=== PATIENT | female | born 1960 ===

== ENCOUNTER 2020-06-02 09:30 | Outpatient (CLI) | payer BC ==
--- NOTE | 2020-06-02 14:24 | Ultrasound Report ---
ULTRASOUND PELVIC LIMITED HISTORY: Vulvar hematoma. Patient had an accident in 2019 resulting in swelling and bruising of her r ight labia that has not completely resolved. TECHNIQUE: Transabdominal ultrasound with color Doppler imaging. FINDINGS: Targeted ultrasound was performed on the right labia at the site of swelling. The images de monstrate a heterogeneous lesion measuring 4.8 x 2.7 x 3.5 cm. There appears to be debris moving with in this structure making this consistent with a partially cystic lesion. No significant internal perf usion is identified on color Doppler imaging. No obvious internal gas or calcifications. IMPRESSION: Probable right labial hematoma as described above. Signer Name: Yaya Ross Jr, MD Signed: 06/02/2020 2:19 PM Workstation Name: [id number]
== END 2020-06-02 09:31 | disposition home or self-care (01) ==
LOC: SPVWC 09:30
PROVIDERS: ATTEND Obstetrics & Gynecology
DX: N90.89 Other specified noninflammatory disorders of vulva and perineum (principal)
CPT/HCPCS: 76857